=== PATIENT | male | born 1965 | race Caucasian/White ===

== ENCOUNTER 2016-11-19 07:23 | Day surgery (SDC) | payer OTHER ==
[~2016-11-19] VITALS: Ht 185.4 cm; Wt 116.0 kg
[~2016-11-19 07:23] MED LIST: 0.9% Sodium Chloride 1,000 ML IV SCH; LEVO137T2 PO; MAGN250T29 PO; METF500T4 PO; OMEP20CA11 PO; Sodium Chloride LOK Flush 10 mL Syringe IV PRN; TOPI50TA88 PO; fentaNYL-PF 50 mCg/mL 2 mL Inj IVPUSH PRN
[2016-11-19 07:41] VITALS: BP 124/79; PULSE 72; RESP 16; O2SAT 95
[2016-11-19 08:38] VITALS: BP 128/92; PULSE 79; RESP 14; O2SAT 99
--- NOTE | 2016-11-19 08:39 | PCM.ENDEGD ---
EGD Date of Service: Nov 19, 2016 Physician Judah Sherman MD Pre Procedure Diagnosis: Reflux Post Procedure Dx & Findings: Esophagitis and gastric superficial ulcers Procedure Esophagogastroduodenoscopy PROCEDURE IN DETAIL: After proper sedation, Olympus video endoscope was inserted into patient's mouth and esophagus was successfully intubated. Scope introduced esophagus. Esophagus showed normal shiny whitish mucosa consistent with squamous cell component. Z line was irregular intact at 44 cm from the incisors. There was a submillimeter piece of irritation right above the Z line. Z line and this area was biopsied. Stomach further events to the stomach. Stomach showed normal shiny mucosa with normal appearing rugae folds without any ulcer mass erosion. However in the antrum, multiple superficial ulcers were noted sizes varied from 2 mm to 5 mm. Biopsies obtained. Cardia fundus body antrum pylorus were all visualized. Retroflexion was done. Stomach was easily inflated and deflatable using air. Scope further events to the distal duodenum. Duodenum revealed normal villous structures with normal appearing folds without any mass ulcer erosion. Impression Possible esophagitis Gastric superficial ulcers Recommendation Stop all NSAIDs. Patient is taking Aleve and ibuprofen. Patient should just take Tylenol. Continue PPI Presedation Assessment Risks and Benefits Informed consent was obtained from the patient after all risks and benefits including but not limited to drug reaction, infection, pain, bleeding, perforation, as well as alternatives were discussed. Patient monitoring Continuous pulse oximetry, cardiac monitoring, blood pressure monitoring, IV access, and oxygen at 2L per nasal cannula. Periprocedural Fentanyl: Fentanyl 100mcg Incrementally Midazolam: Midazolam 4mg Incrementally Complications There were no periprocedural complications identified. Post Procedure Plan Post Procedure Recommendations 1. Restrict activities today. 2. Resume normal activities in the morning. 3. Resume medications. 4. GERD behavioral modification: - Avoid fatty, acidic, spicy, large meals - Do not lie down after meals - Do not eat or drink anything for at least 2 1/2 hours before going to bed at night - Discontinue tobacco and alcohol - Decrease or avoid caffeine - Avoid chocolate and mints - Decrease weight - Avoid aspirin and non steroidal anti-inflammatory agents (NSAID) such as Aleve, Advil, Mobic, Naproxen, Ibuprofen, etc 5. Add proton pump inhibitor. Take 30 minutes before 1st meal of the day. 6. Patient informed of normal post procedure side effects as bloating, drowsiness, blood streaking in the stool 7. If gastric biopsy reveal H.pylori, continue with appropriate treatment 8. If small bowel biopsy reveals celiac, continue with appropriate treatment 9. Please don't hesitate to call me with any questions Judah Sherman MD Nov 19, 2016 08:39
--- NOTE | 2016-11-19 08:40 | PCM.ENDCOL ---
Colonoscopy Date of Service: Nov 19, 2016 Physician Judah Sherman MD Pre Procedure Diagnosis: Screening Post Procedure Dx & Findings: Polyp hemorrhoids Procedure Colonoscopy PROCEDURE IN DETAIL: Prep adequate Withdrawal time 11 minutes After unremarkable rectal examination the Olympus video colonoscope was inserted patient's anal canal and was advanced to cecum. Landmarks were identified including the ileocecal valve and appendiceal orifice. Scope was withdrawn systematically. Visualized colonic mucosa showed healthy shiny mucosa with normal healthy-appearing vasculature. In the ileocecal valve, there was a patch of redness. This was biopsied. In the rectum, there were total of 5 polyps. 4 polyps were 1 mm. These were resected completely using cold forcep. There was a 3 mm polyp which was resected completely using cold snare. In the rectum retroflexion was done which showed hemorrhoids. Anal canal was inspected carefully on the way out and hemorrhoids noted. Impression Polyps 5 status post complete removal Ileocecal valve irritation status post biopsy Hemorrhoids Recommendation Repeat colonoscopy 3 years Presedation Assessment Risks and Benefits Informed consent was obtained from the patient after all risks and benefits including but not limited to drug reaction, infection, pain, bleeding, perforation, as well as alternatives were discussed. Patient monitoring Continuous pulse oximetry, cardiac monitoring, blood pressure monitoring, IV access, and oxygen at 2L per nasal cannula. Periprocedural Fentanyl: Fentanyl 25mcg Midazolam: Midazolam 2mg Incrementally Complications There were no periprocedural complications identified. Post Procedure Plan Post Procedure Recommendations 1. Restrict activities today. 2. Resume normal activities in the morning. 3. Resume medications. 4. Patient informed of normal post procedure side effects as bloating, drowsiness, blood streaking in the stool. 5. average risk CRCS. If colon polyps come back as: -Hyperplastic- can repeat colonoscopy in 10 years -Tubular adenoma- repeat colonoscopy in 5 years -Tubulovillous/villous adenoma- repeat colonoscopy in 3 years -If any dysplasia- return to clinic as soon as possible 6. Please don't hesitate to call me with any questions. Judah Sherman MD Nov 19, 2016 08:40
[2016-11-19 08:48] VITALS: BP 123/76; PULSE 66; RESP 12; O2SAT 97
[2016-11-19 08:56] VITALS: BP 121/79; PULSE 72; RESP 14; O2SAT 98
--- NOTE | 2016-11-22 10:36 | PATH ---
SURGICAL PATHOLOGY Attending Physician:Judah Sherman M.D. CASE STATUS: Signed Out PATIENT NAME: BECCA NAILS PID: [id number] : 1965 DATE COLLECTED:11/19/2016 17:02 SPECIMEN: 1: Gastric, Biopsy 2: Esophagus, Biopsy 3: Colon, Biopsy 4: Rectum, Biopsy CLINICAL HISTORY: 1). GASTRIC BIOPSY 2). Z-LINE ESOPHAGUS BIOPSY 3). ILEOCECAL VALVE BIOPSY 4). RECTAL POLYP FINAL DIAGNOSIS: 1.GASTRIC BIOPSY: MODERATE CHRONIC GASTRITIS, FOCALLY ACTIVE, WITH FOCAL MUCOSAL EROSION INVOLVING ANTRAL AND FUNDIC MUCOSA. Immunohistochemistry for Helicobacter pending, to be reported by addendum. Negative for intestinal metaplasia. Negative for dysplasia and malignancy. 2.Z-LINE, ESOPHAGUS BIOPSY: SQUAMOUS MUCOSA AND GASTRIC CARDIA-TYPE MUCOSA WITH CHRONIC INFLAMMATION AND REACTIVE EPITHELIAL CHANGES. Negative for specialized metaplasia of Casey' s-type esophagus. Negative for dysplasia and malignancy. Eosinophils are not increased. 3.ILEOCECAL VALVE BIOPSY: FRAGMENT OF COLON MUCOSA WITH ACUTE INFLAMMATORY CHANGES AND APPARENT FOCAL MUCOSAL EROSION. Negative for granulomas. No small bowel mucosa identified. Negative for dysplasia and malignancy. 4.RECTAL POLYP: HYPERPLASTIC POLYP INVOLVING THREE BIOPSY FRAGMENTS. CHANGES CONSISTENT WITH TUBULAR ADENOMA INVOLVING SINGLE BIOPSY FRAGMENT. ICD10 code K29.70 GROSS DESCRIPTION: The specimen is received in four formalin filled containers labeled with the patient's name. 1). The specimen is sublabeled "gastric" and consists of 3 portions of tissue which aggregate to 0.3 x 0.3 x 0.2 CM. The specimen is entirely submitted in cassette 1A. 2). The specimen is sublabeled "Z line esophagus" and consists of a 0.2 x 0.2 x 0.2 CM portion of tissue which is entirely submitted in cassette 2A. 3). The specimen is sublabeled "ileocecal valve" and consists of a 0.3 x 0.2 x 0.2 CM portion of tissue which is entirely submitted in cassette 3A. 4). The specimen is sublabeled "rectal polyp" and consists of 4 portions of tissue which aggregate to 0.4 x 0.4 x 0.3 CM. The specimen is entirely submitted in cassette 4A. 11/19/2016 DAC MICRO DESCRIPTION: See diagnosis. ICD-9 CODES: CPT CODES: 1: 85684, 82555 2: 83524 3: 11588 4: 25253 PROCEDURE/ADDENDA: Immunohistochemistry SPI Interpretation {Not Entered} Results-Comments 1.GASTRIC BIOPSY: An immunostain for Helicobacter organisms is done because of the presence of acute inflammation. The Helicobacter stain is negative. This test was developed and its performance characteristics determined by [facility] It has not been cleared or approved by the [place]. Food and Drug Administration. The FDA has determined that such clearance or approval is not necessary. This test is used for clinical purposes. It should not be regarded as investigational or for research. Electronically Signed Out Cristofer Tolliver MD Electronically Signed Out Kiet Dai MD [facility] [address], [place] [address] Technical component performed at [facility], [facility] [address], [place], [address]
== END 2016-11-19 23:59 | disposition home or self-care (01) ==
LOC: END 07:23
PROVIDERS: ATTEND Internal Medicine
DX: D12.8 Benign neoplasm of rectum (principal); K64.9 Unspecified hemorrhoids; K92.1 Melena; K21.9 Gastro-esophageal reflux disease without esophagitis; K29.50 Unspecified chronic gastritis without bleeding; E11.9 Type 2 diabetes mellitus without complications; E03.9 Hypothyroidism, unspecified; Z79.84 Long term (current) use of oral hypoglycemic drugs
CPT/HCPCS: 43239; 45380; 45385; 99153; G0500; J2250; J3010; J7030